=== PATIENT | male | born 1965 | race Two or more races ===

== ENCOUNTER 2017-11-11 09:35 | Emergency (ER) | payer OTHER ==
[~2017-11-11] VITALS: Ht 177.8 cm; Wt 124.7 kg
[~2017-11-11 09:35] MED LIST: CRESTOR20 MG; IBUPROFEN800 MG PO; JENTADUETO 2.51 EACH
== END 2017-11-11 11:28 | disposition home or self-care (01) ==
LOC: ER 09:35
DX: M25.551 Pain in right hip (principal)